=== PATIENT | male | born 1990 | race Caucasian/White ===

== ENCOUNTER 2020-11-23 20:02 | Emergency (ER) | payer OTHER ==
[~2020-11-23] VITALS: Ht 190.5 cm; Wt 83.9 kg
[2020-11-23 21:10] VITALS: BP 118/70; TEMP 98.3
== END 2020-11-23 21:10 | disposition home or self-care (01) ==
LOC: ED 20:02
DX: M79.18 Myalgia, other site (principal); V89.0XXA Person injured in unspecified motor-vehicle accident, nontraffic, initial encounter; Y92.410 Unspecified street and highway as the place of occurrence of the external cause
CPT/HCPCS: 99282; 99283

== ENCOUNTER 2020-12-06 18:22 | Emergency (ER) | payer OTHER ==
[~2020-12-06] VITALS: Ht 190.5 cm; Wt 83.9 kg
[2020-12-06 19:25] VITALS: BP 112/73; TEMP 98.4
== END 2020-12-06 19:25 | disposition home or self-care (01) ==
LOC: ED 18:22
DX: M54.5 Low back pain (principal)
CPT/HCPCS: 96372; 99283; J1885